=== PATIENT | male | born 1960 | race Asian ===

== ENCOUNTER 2020-03-29 09:23 | Outpatient (CLI) | payer BC ==
--- NOTE | 2020-03-29 11:36 | RAD ---
RIGHT KNEE 3 VIEWS: Date: 03/29/2020 PROVIDED CLINICAL HISTORY: Pain. FINDINGS: There is no evidence for fracture or other acute osseous abnormality. Alignment appears anatomic. Nupur nt spaces appear preserved. Moderate knee joint capsular distention. IMPRESSION: Moderate knee joint capsular distention without evidence for an acute osseous abnormality. If there i s concern for internal derangement, consider MRI. POS: [facility]
== END 2020-03-29 09:24 | disposition home or self-care (01) ==
LOC: SCSRAD 09:23
PROVIDERS: ATTEND Family Medicine
DX: M25.561 Pain in right knee (principal); M25.861 Other specified joint disorders, right knee
CPT/HCPCS: 36415; 80053; 80061; 81003; 83036; 83520; 84439; 84443; 84550; 85025; 85652; 86038; 86140; 86200; 86225; 87521; G0103

== ENCOUNTER 2020-05-01 13:52 | Outpatient (CLI) | payer BC ==
--- NOTE | 2020-05-01 20:04 | MRI ---
RIGHT KNEE MRI WITHOUT IV CONTRAST: History: Tear of medial meniscus, right knee pain for one month. Technique: Multiplanar, multisequence MRI examination of the right knee is performed. FINDINGS: There is some minimal suprapatellar joint fluid. There is some generalized cartilage loss, most marke d involving the medial compartment. Fairly extensive complex tear with a flap component involving the medial meniscus including the posterior horn and body extending to the anterior horn body junction. Small subchondral focus of abnormal marrow signal involving the medial aspect of the medial femoral c ondyle, evidence for a small insufficiency or stress type subchondral fracture. The cruciate ligament s and lateral ligament complexes appear intact. Minimally dilated popliteal hiatus. IMPRESSION: Fairly extensive complex medial meniscal tear including a flap component. Very small subchondral insufficiency or stress type fracture of the medial aspect of the medial femor al condyle. Small amount of joint fluid. Other findings as above. POS: [facility]
== END 2020-05-01 13:53 | disposition home or self-care (01) ==
LOC: SCSMRI 13:52
PROVIDERS: ATTEND Orthopaedic Surgery
DX: S83.231A Complex tear of medial meniscus, current injury, right knee, initial encounter (principal); M25.461 Effusion, right knee

== ENCOUNTER 2020-05-12 08:03 | Outpatient (CLI) | payer BC, OTHER ==
[2020-05-12 18:04] LABS: #Eosinphils 0.2 thou/uL (0.0-0.7); #Lymphocytes 1.5 thou/uL (1.20-3.40); #Monocytes 0.3 thou/uL (0.11-0.59); #Neutrophils 2.5 thou/uL (1.40-6.50); %Basophils 0.5 % (0.0-1.0); %Eosinophils 4.1 % (0.0-10.0); %Lymphocytes 33.2 % (21.0-51.0); %Monocytes 7.4 % (0.0-10.0); %Neutrophils 54.8 % (42.0-75.0); Hemoglobin 13.1 g/dL (14.0-18.0); Mean Corpuscular HGB CONC 33.5 g/dL (32.0-36.0); Mean Corpuscular Hemoglobin 30.2 pg (27.0-31.0); Mean Corpuscular Volume 90.3 fL (78.0-98.0); Mean Platelet Volume 10.8 fL (7.4-10.4); Platelet Count 173 thou/uL (130-400); RBC Distribution Width 11.9 % (11.5-14.5); Red Blood Cell (RBC) Count 4.34 mill/uL (4.70-6.10); White Blood Cell (WBC) Count 4.5 thou/uL (4.8-10.8)
[2020-05-12 18:14] LABS: Anion Gap 11 mmol/L (10-20); BUN (Urea Nitrogen) 14 mg/dL (8.4-25.7); Calc. Creatinine Clearance 0 mL/min (70-130); Carbon Dioxide 27 mmol/L (23-31); Chloride 109 mmol/L (98-107); Estimated GFR-MDRD 77; Glucose 89 mg/dL (80-115); Potassium 4.4 mmol/L (3.5-5.1); Sodium 143 mmol/L (136-145)
[2020-05-13 11:33] LABS: SARS-CoV-2 MS2 Positive; SARS-CoV-2 N Gene Negative; SARS-CoV-2 S Gene Negative; SARS-CoV-2 orf1ab Negative
== END 2020-05-12 08:04 | disposition home or self-care (01) ==
LOC: LABBT 08:03
PROVIDERS: ATTEND Orthopaedic Surgery
DX: Z01.812 Encounter for preprocedural laboratory examination (principal); Z11.59 Encounter for screening for other viral diseases; S83.206A Unspecified tear of unspecified meniscus, current injury, right knee, initial encounter
CPT/HCPCS: 80048; 85025; 87635; U0003

== ENCOUNTER 2020-05-17 09:01 | Day surgery (SDC) | payer BC ==
[2020-05-11 13:12] VITALS: BMI 28.3
[2020-05-17] MEDS ORDERED: Midazolam HCl 2 mg/2 ml Vial ONE (09:34)
[2020-05-17] MEDS ORDERED: Fentanyl 100 MCG/2 ML VIAL ONE ×2 (09:34→11:30)
[2020-05-17] MEDS ORDERED: Dexamethasone 20 MG/5 ML VIAL ONE (11:30)
[2020-05-17] MEDS ORDERED: PHENYLEPHRINE-NS 100 MCG/ML 10 ML SYRINGE ONE (11:30)
[2020-05-17] MEDS ORDERED: Bupivacaine PF 0.5% 30 ML VIAL ONE ×2 (11:30→11:43)
[2020-05-17] MEDS ORDERED: Ondansetron PF 4 MG/2 ML Vial ONE (11:30)
[2020-05-17] MEDS ORDERED: PROPOFOL 200 MG/20 ML VIAL ONE (11:30)
[2020-05-17] MEDS ORDERED: Glycopyrrolate 0.2 MG/ML 5 ML SYRINGE ONE (11:30)
[2020-05-17] MEDS ORDERED: Lidocaine 2% w/Epinephrine 1:200K 20 ML VIAL ONE (11:30)
[2020-05-17] MEDS ORDERED: Lidocaine 1% PF 5 ML VIAL ONE (11:30)
[2020-05-17] MEDS ORDERED: Ketorolac Tromethamine 30 MG/ML VIAL ONE (11:30)
[2020-05-17] MEDS ORDERED: Bupivacaine 0.25% HCL 30 ML VIAL ONE (11:43)
[2020-05-17] MEDS ORDERED: EPINEPHrine 1 MG/ML AMP ONE (11:43)
[2020-05-17] MEDS ORDERED: HYDROcodone/Acetaminophen 5/325 mg Tablet ONE (13:35)
[2020-05-17] MEDS ORDERED: Morphine 2 MG/ML SYRINGE ONE (14:11)
--- NOTE | 2020-05-18 09:42 | OP ---
DATE OF PROCEDURE: 05/17/2020 PREOPERATIVE DIAGNOSIS: Right knee posterior horn medial meniscus tear. POSTOPERATIVE DIAGNOSIS: Right knee posterior horn medial meniscus tear. PROCEDURES PERFORMED: Right knee arthroscopy, partial medial meniscectomy. PEANUT SEPARATOR: None. ESTIMATED BLOOD LOSS: Minimal. COMPLICATIONS: None. ANESTHESIA: The patient did have a general anesthetic as well as a local block to the right knee. DISPOSITION: He did go to recovery room in stable condition. INDICATIONS: This 60-year-old active male comes in complaining of pain, catching, and swelling in the knee. Found to have a large tear with a thick flap component in the medial joint. At this time, opted to have surgery. DESCRIPTION OF PROCEDURE: After all appropriate consent forms were explained and signed, he was taken to the operating room, and at this time, was given a general anesthetic. Once the level of anesthesia was appropriate, tourniquet was placed on the right thigh, and the leg was then prepped and draped in standard surgical fashion. The limb was exsanguinated, and tourniquet was taken to 300 mmHg. Inferolateral portal was established. Scope was placed into the knee joint. A needle localization technique was then used to make a medial working portal. Diagnostic arthroscopy commenced in the notch. ACL and PCL were probed, found to be intact. Medial compartment was evaluated and medially it was noted a large chunk of tissue. It was actually visible in the front of the joint from the notch. This tissue ripped off the posterior horn and was flipped forward in between the femur and tibia. Partial meniscectomy was then performed using meniscal biter and shaver to get back to a stable rim. The remaining meniscus tissue was in good condition. The femoral and articular cartilage of the tibia were both in good condition. Lateral compartment was evaluated and felt to be intact. Patellofemoral joint was intact. Gutters were swept through. No loose bodies noted. At this time, scope was removed. Knee was drained. Portals were closed with simple nylon stitch. Bulky sterile dressing was then applied. Tourniquet was let down. Toes pinked up nicely. He was awakened, taken to recovery room in stable condition. All counts were correct at the end of the case and he did receive preoperative IV antibiotics. Job ID: [id number]
== END 2020-05-17 15:38 | disposition home or self-care (01) ==
LOC: SDC 09:01
PROVIDERS: ATTEND Orthopaedic Surgery
PROC: 0SBC4ZZ Excision of Right Knee Joint, Percutaneous Endoscopic Approach (ICD-10-PCS; principal; 2020-05-17)
DX: S83.241A Other tear of medial meniscus, current injury, right knee, initial encounter (principal); I10 Essential (primary) hypertension; D64.9 Anemia, unspecified; M19.90 Unspecified osteoarthritis, unspecified site; Z79.899 Other long term (current) drug therapy
CPT/HCPCS: J0171; J0690; J1100; J1885; J2001; J2250; J2270; J2405; J2704; J3010; S0020

== ENCOUNTER 2021-08-06 13:49 | Outpatient (CLI) | payer BC | END 2021-08-06 13:50 | disposition home or self-care (01) | LOC: SCSMRI 13:49 | PROVIDERS: ATTEND Orthopaedic Surgery | DX: M23.92 Unspecified internal derangement of left knee (principal); M84.352A Stress fracture, left femur, initial encounter for fracture; S83.232A Complex tear of medial meniscus, current injury, left knee, initial encounter ==

== ENCOUNTER 2021-11-06 14:09 | Outpatient (CLI) | payer BC ==
[2021-11-06 15:14] LABS: #Eosinphils 0.1 10x3/uL (0.0-0.5); #Monocytes 0.3 10x3/uL (0.0-1.1); #Neutrophils 2.5 10x3/uL (1.5-8.4); %Basophils 0.2 % (0.0-2.0); %Eosinophils 1.4 % (0.0-6.0); %Lymphocytes 30.7 % (18.0-47.0); %Neutrophils 59.2 % (40.0-75.0); Hemoglobin 13.1 g/dL (13.5-17.5); Mean Corpuscular HGB CONC 32.4 g/dL (32.0-36.0); Mean Corpuscular Hemoglobin 29.8 pg (27.0-33.0); Mean Platelet Volume 11.2 fl (7.4-10.4); Platelet Count 197 10x3/uL (150-450); RBC Distribution Width 12.3 % (11.5-14.5); Red Blood Cell (RBC) Count 4.39 10x6/uL (4.32-5.72); White Blood Cell (WBC) Count 4.2 10x3/uL (3.5-10.5)
[2021-11-06 15:31] LABS: Anion Gap 10 mmol/L (10-20); BUN (Urea Nitrogen) 12 mg/dL (8.4-25.7); Calc. Creatinine Clearance 0 mL/min (70-130); Calcium 9.2 mg/dL (7.8-10.44); Carbon Dioxide 29 mmol/L (23-31); Chloride 107 mmol/L (98-107); Glucose 117 mg/dL (80-115); Potassium 3.9 mmol/L (3.5-5.1); Sodium 142 mmol/L (136-145)
[2021-11-07 00:42] LABS: SARS-CoV-2 PCR by NAA Not Detected (NotDetected)
== END 2021-11-06 14:10 | disposition home or self-care (01) ==
LOC: LABBT 14:09
PROVIDERS: ATTEND Orthopaedic Surgery
DX: Z01.818 Encounter for other preprocedural examination (principal); I51.7 Cardiomegaly; Z20.822 Contact with and (suspected) exposure to COVID-19
CPT/HCPCS: 71046; 80048; 85025; U0003; U0005

== ENCOUNTER 2021-11-09 06:01 | Day surgery (SDC) | payer BC ==
[2021-11-08 11:34] VITALS: BMI 29.1
[2021-11-09] MEDS ORDERED: Fentanyl 250 MCG/5 ML VIAL ONE (06:40)
[2021-11-09] MEDS ORDERED: PROPOFOL 20 ML ONE (06:50)
[2021-11-09] MEDS ORDERED: ceFAZolin 2 GM/DEX 5% 100 ML BAG ONE (07:46)
[2021-11-09] MEDS ORDERED: Lidocaine 2% w/Epinephrine 1:200K 20 ML VIAL ONE (07:51)
[2021-11-09] MEDS ORDERED: PROPOFOL 200 MG/20 ML VIAL ONE (07:51)
[2021-11-09] MEDS ORDERED: ePHEDrine 50 MG/ML VIAL ONE (07:51)
[2021-11-09] MEDS ORDERED: Bupivacaine PF 0.5% 30 ML VIAL ONE (07:51)
[2021-11-09] MEDS ORDERED: Ondansetron PF 4 MG/2 ML Vial ONE (07:51)
[2021-11-09] MEDS ORDERED: Lidocaine 1% PF 5 ML VIAL ONE (07:51)
[2021-11-09] MEDS ORDERED: Ketorolac Tromethamine 30 MG/ML VIAL ONE (07:51)
[2021-11-09] MEDS ORDERED: Dexamethasone 20 MG/5 ML VIAL ONE (07:51)
[2021-11-09] MEDS ORDERED: Fentanyl 100 MCG/2 ML VIAL ONE (09:13)
== END 2021-11-09 10:15 | disposition home or self-care (01) ==
LOC: SDC 06:01
PROVIDERS: ATTEND Orthopaedic Surgery
PROC: 0SBD4ZZ Excision of Left Knee Joint, Percutaneous Endoscopic Approach (ICD-10-PCS; principal; 2021-11-09)
DX: S83.242A Other tear of medial meniscus, current injury, left knee, initial encounter (principal); M23.92 Unspecified internal derangement of left knee; I10 Essential (primary) hypertension; D64.9 Anemia, unspecified; Z79.899 Other long term (current) drug therapy
CPT/HCPCS: J1100; J1885; J2405; J2704; J3010; J3490; S0020